=== PATIENT | male | born 1945 | race Hispanic/Latino ===

== ENCOUNTER 2019-10-30 09:02 | Day surgery (SDC) | payer OTHER ==
[~2019-10-30] VITALS: Ht 167.6 cm; Wt 72.6 kg
[2019-10-30] VITALS (7 sets, daily range): BP systolic 95–166; BP diastolic 53–85
[~2019-10-30 09:02] MED LIST: SODIUM CHLORIDE 0.9% 1000ML 1,000 ML IV ONE
[2019-10-30] MEDS ORDERED: OXYB-66 PO (10:39)
[2019-10-30] MEDS ORDERED: MIRT-72 PO (10:39)
[2019-10-30] MEDS ORDERED: CLOP75TA32 PO (10:39)
[2019-10-30] MEDS ORDERED: OMEG-96 PO (10:39)
[2019-10-30] MEDS ORDERED: GEMF600T5 PO (10:39)
[2019-10-30] MEDS ORDERED: LATA7.5D OU (10:39)
[2019-10-30] MEDS ORDERED: SERT100T12 PO (10:39)
[2019-10-30] MEDS ORDERED: RANI150C4 PO (10:39)
[2019-10-30] MEDS ORDERED: ATOR40TA71 PO (10:39)
[2019-10-30] MEDS ORDERED: PROPOFOL 10 MG/ML 20ML VIAL IV ONE (11:40)
[2019-10-30] MEDS ORDERED: GLYCOPYRROLATE 0.2 MG/ML 5 ML VIAL ONE ×2 (11:50→11:53)
== END 2019-10-30 12:45 | disposition home or self-care (01) ==
LOC: DAH 09:02 → ENDO 09:02
PROVIDERS: ATTEND Internal Medicine Gastroenterology
DX: K59.00 Constipation, unspecified (principal); D12.2 Benign neoplasm of ascending colon; D12.4 Benign neoplasm of descending colon; I44.0 Atrioventricular block, first degree; E78.00 Pure hypercholesterolemia, unspecified; G47.00 Insomnia, unspecified; Z86.010 Personal history of colon polyps; Z86.73 Personal history of transient ischemic attack (TIA), and cerebral infarction without residual deficits; Z85.46 Personal history of malignant neoplasm of prostate; Z79.899 Other long term (current) drug therapy; Z90.79 Acquired absence of other genital organ(s)
CPT/HCPCS: 45385; 88305; 93005; A4215; A4221; A4222; A4223; A4606; A4615; A4663; J2704; J3490 ×2; J7030